=== PATIENT | male | born 1980 | race Caucasian/White ===

== ENCOUNTER 2022-05-13 08:02 | Outpatient (CLI) | payer BC, SELFPAY ==
[2022-05-13 13:46] LABS: Chloride* 104 mmol/L (96-114)
[2022-05-13 13:47] LABS: Potassium* 4.7 mmol/L (3.6-5.1); Sodium* 141 mmol/L (135-149)
[2022-05-13 13:49] LABS: Cholesterol* 263 mg/dL (90-199); Estimated Glomerular Filt Rate 98 ml/min
[2022-05-13 13:50] LABS: Blood Urea Nitrogen* 19 mg/dL (5-24); Calcium* 9.8 mg/dL (8.4-10.6); Carbon Dioxide* 29 mmol/L (20-32); Glucose* 97 mg/dL (60-115); HDL Cholesterol* 41 mg/dL (>=40); LDL Cholesterol Calculated 168 mg/dL (<100); Triglycerides* 268 mg/dL (40-149)
== END 2022-05-13 08:03 | disposition home or self-care (01) ==
PROVIDERS: PCP Family Medicine; Visit Provider Family Medicine
DX: E78.5 Hyperlipidemia, unspecified (principal)
CPT/HCPCS: 80048; 80061

== ENCOUNTER 2023-08-31 09:26 | Outpatient (CLI) | payer BC, SELFPAY | END 2023-08-31 09:27 | disposition home or self-care (01) | PROVIDERS: PCP Family Medicine; Visit Provider Family Medicine | DX: G40.A09 Absence epileptic syndrome, not intractable, without status epilepticus (principal); E78.2 Mixed hyperlipidemia; Z13.6 Encounter for screening for cardiovascular disorders | CPT/HCPCS: 80048; 80061; 80177; 84460; 85025 ==

== ENCOUNTER 2024-09-29 09:37 | Outpatient (CLI) | payer BC, SELFPAY | END 2024-09-29 09:38 | disposition home or self-care (01) | PROVIDERS: PCP Family Medicine; Visit Provider Family Medicine | DX: E78.2 Mixed hyperlipidemia (principal); G40.A09 Absence epileptic syndrome, not intractable, without status epilepticus; Z51.81 Encounter for therapeutic drug level monitoring | CPT/HCPCS: 80048; 80061; 80177; 84460; 85025 ==